=== PATIENT | female | born 1990 | race Two or more races ===

== ENCOUNTER 2025-02-24 19:36 | Emergency (ER) | payer MEDICAID, SELFPAY ==
[2025-02-24 19:38] VITALS: BMI 42.7
[2025-02-24 20:14] VITALS: BP 118/71; PULSE 107; RESP 18; TEMP 37.3; O2SAT 97
--- NOTE | 2025-02-24 20:18 | XR_ITS ---
Examination: PA lateral chest 2 views Technique: Upright PA lateral chest 2 views Exam date and time: May 26 2025.30 hours Indications: Fever chills beginning 9 days ago. Findings: Significant pneumonia anterior segment left upper lobe Normal heart size Intact osseous structures Impression: Significant pneumonia anterior segment left upper lobe
--- NOTE | 2025-02-24 20:30 | EDNOTE_ITS ---
Upper Respiratory Inf. RME/HPI General Chief Complaint: Flu Like Symptoms Stated Complaint: COUGHING, WHEEZING DX WITH STREP 02/22 Time Seen by Provider: 02/24/25 19:47 Arrival date/time: 02/24/25 19:36 35 year old female present to emergency room with c/o of cough and shortness of breath 3 days. patient was recently diagnosed with strep throat and place on oral antibiotics. LOCATION: posterior oral pharynx SEVERITY: Symptoms are described as being severe with limitations on activities of daily living QUALITY: Symptoms are described as being dull or achy CONTEXT: The patient is unable to identify any inciting events. DURATION/TIMING: The symptoms started approximately 2 day ago and have been constant this then. ASSOCIATED SYMPTOMS: The patient is unable to identify any other associated symptoms. MODIFYING FACTORS: worse with swallowing PERTINENT ROS: denies any food or liquids getting stuck, denies any generalized weakness, denies any trauma, no chest pain, no abdominal pain, no rashes, no joint swelling REVIEW OF SYSTEMS: See History of Present Illness - with the exception of those mentioned in the history of present illness, all other systems reviewed and reported as negative GENERAL: In general the patient is awake, interactive, in an emergency department gurney. HEAD/EYES/EARS/NOSE/THROAT: normo-cephalic, atraumatic, mucus membranes are moist, anicteric, palpebral conjunctiva is pink, trachea is midline. CARDIOVASCULAR: regular rate and regular rhythm, no murmurs, heart sounds are not distant, strong pulses in all four extremities that are equal and symmetric bilateral upper and lower extremities, normal capillary refill. CHEST/PULMONARY: normal chest rise and fall, good air movement, bilateral wheezes noted. normal inspiratory to expiratory ratios without evidence of respiratory distress. NECK: No midline/Paraspinal tenderness, no step off ROM/Strenght intact No Ker nig and bruzinski sign. No trauma ABDOMEN: soft, not tender, no masses appreciated BACK: normal range of motion without pain. NEUROLOGICAL: cranio-facial features are symmetric, moves all four extremities equally without obvious limitations or weakness. EXTREMITY: no tenderness to palpation over the long bones or large joints of the bilateral upper and lower extremities, no joint swelling, no joint erythema, no signs of trauma, no unilateral leg swelling and no peripheral edema. SKIN: warm, dry, well-perfused, no jaundice, no rash, no telangiectasias or petechia. PSYCH: calm, cooperative, no evidence of psychosis or agitation Related Data Previous Rx's ?Medication ?Instructions ?Recorded Hydrocodone/Acetaminophen * (NORCO 1 tab PO Q6H PRN AB DOMINAL PAIN 01/09/16 7.5/325 *) #40 tabs Cyclobenzaprine * (FLEXERIL *) 10 mg PO TID #30 tabs 1 cyclobenzaprine 5 mg tablet 5 mg PO TID PRN muscle spa sm #14 09/11/20 tabs albuterol sulfate 90 mcg/actuation 2 puff inhalation Q ID PRN 07/03/21 aerosol inhaler shortness of breath or wheez ing #18 grams cetirizine 10 mg tablet (Zyrtec) 10 mg PO QDAY PRN all ergy symptoms 07/03/21 #30 tabs sodium chloride 0.65 % nasal spray 2 spray intranasal QID #60 mL 07/03/21 aerosol (Saline Nasal) acetaminophen 500 mg tablet 500 mg PO QID #30 tabs (Tylenol Extra Strength) azithromycin 250 mg tablet See Rx Instructions PO .COM PLEX #6 12/04/21 tabs naproxen 500 mg tablet 500 mg PO BID PRN pain #30 t abs 02/14/24 albuterol sulfate 90 mcg/actuation 1 inh inhalation QI D PRN shortness 02/24/25 aerosol inhaler of breath or wheezing #6.7 g shantell azithromycin 500 mg tablet 500 mg PO QDAY 3 days #3 ta bs 02/24/25 methylprednisolone 4 mg tablets in 4 mg PO .as directe d #21 tabs 02/24/25 a dose pack (Medrol (Misael)) Allergies Allergy/AdvReac Type Severity Reaction Status Date / Time metformin Allergy Verified 02/24/25 19:41 Course Course Course Narrative: Patient presenting with cough and fever.? VS were reviewed and showed wnl .? ?Lung exam noted to have + wheezing? ?Obtained and reviewed CXR, which showed pna .? ?At this time, it is felt that the most likely explanation for the patient's symptoms is pneumonia.? I also considered URI, bronchitis, pneumonia, pneumothorax, PE, but this appears less likely considering the data gathered thus far.? Patient was provided azithromycin, predisone 50mg, duoneb? while in the ED.? ? Supportive treatment options were discussed.? Patient to follow up with PCP closely.?? Impression:?? Community acquired pneumonia Plan Prescribed inhaler, medro dose, azithromycin? Advised Pt on supportive measures, including smoking cessation and avoidance of second-hand smoke, OTC acetaminophen or ibuprofen for fever and body aches, advancement of fluids as tolerated, rest, and frequent hand-washing w/ soap and water. Instructed Pt to monitor for shaking chills or T>100.5degF, persistent cough >7- 10d, hemoptysis, delirium or confusion, cyanosis, and respiratory distress.? Instructed Pt to f/up w/ PCP or ETC should Sx worsen or not improve.? Quality Measures none Orders Category Date Time Status XR chest 2V Stat Exams 02/24/25 20:18 Completed Albuterol/Ipratr Rt Carlota [Duoneb Rt Carlota] Med 02/24/25 21:10 Discontinued 3 ml INH X1 ONE Azithromycin Po [Zithromax PO] Med 02/24/25 21:51 Discontinued 500 mg PO X1 ONE predniSONE Med 02/24/25 20:18 Discontinued 60 mg PO X1 ONE Reevaluation(s) Reevaluation #1: pt is feeling better Vital Signs Vital signs: Vital Signs Temperature 99.1 F 02/24/25 20:14 Pulse Rate 107 H 02/24/25 20:14 Respiratory Rate 18 02/24/25 20:14 Blood Pressure 118/71 02/24/25 20:14 Pulse Oximetry (%) 97 02/24/25 20:14 Oxygen Delivery Method Room Air 02/24/25 20:14 Upper Respiratory Infection Patient data External records reviewed:: [facility] previous records Clinical information provided by:: patient Social determinants that could affect healthcare access:: none Patient has the following chronic illnesses:: as stated in chart How is presenting disease/condition affected by chronic disease/condition?: exacerbated by Evaluation data The following diagnostics were reviewed and interpreted by me:: radiology exam(s) Lab and/or radiology exams considered but not ordered:: n/a Interpretation Summary: Impression: Significant pneumonia anterior segment left upper lobe Medications / Prescriptions Medications or Prescriptions considered but not ordered:: n/a Medication administrations:: Medication Administration History Discontinued Medications Albuterol/Ipratropium (Albuterol/Ipratropium (Duoneb) Rt Carlota 3 Ml Nebu) 3 ml INH X1 ONE Stop: 02/24/25 21:11 Last Admin: 02/24/25 21:35 Dose: 3 ml Documented By: SHAHNAZ Azithromycin (Azithromycin 250 Mg Tablet) 500 mg PO X1 ONE Stop: 02/24/25 21:52 Prednisone (Prednisone 20 Mg Tablet) 60 mg PO X1 ONE Stop: 02/24/25 20:19 Last Admin: 02/24/25 20:55 Dose: 60 mg Documented By: DWAYNE as stated above Consultations Consultation(s) initiated? (list below): No Diagnosis Upper Respiratory Differential Diagnosis: upper respiratory infection, viral infection, bronchitis, influenza and other (strep) Most likely diagnosis given after review of the tests above:: pna Admission Indicated Admission indicated?: not indicated Admission Request Was there a request for admission?: No Disposition Plan Disposition Plan: Discharge Discharge Attestation Discharge Attestation: The patient and all family members were given an opportunity to ask questions and understood the discharge instructions. Discharge instructions specifically effects, indications for sooner follow up or return to the emergency department, and the expected course of current diagnosis. Patient condition: Stable Discharge Plan Plan Patient Disposition: HOME (Self Care) Prescriptions/Referrals Prescriptions/Med Rec: New azithromycin 500 mg tablet 500 mg PO QDAY 3 Days Qty: 3 0RF methylprednisolone [Medrol (Misael)] 4 mg tablets,dose pack 4 mg PO .as directed Qty: 21 0RF albuterol sulfate 90 mcg/actuation HFA aerosol inhaler 1 inh inhalation QID PRN (Reason: shortness of breath or wheezing) Qty: 6.7 0RF No Action Hydrocodone/Acetaminophen * (NORCO 7.5/325 *) 1 TAB tablet 1 tab PO Q6H PRN (Reason: ABDOMINAL PAIN) Qty: 40 0RF Cyclobenzaprine * (FLEXERIL *) 10 MG tablet 10 mg PO TID Qty: 30 0RF cyclobenzaprine 5 mg tablet 5 mg PO TID PRN (Reason: muscle spasm) Qty: 14 0RF albuterol sulfate 90 mcg/actuation HFA aerosol inhaler 2 puff inhalation QID PRN (Reason: shortness of breath or wheezing) Qty: 18 0RF sodium chloride [Saline Nasal] 0.65 % aerosol,spray 2 spray intranasal QID Qty: 60 0RF cetirizine [Zyrtec] 10 mg tablet 10 mg PO QDAY PRN (Reason: allergy symptoms) Qty: 30 0RF azithromycin 250 mg tablet See Rx Instructions .ROUTE .COMPLEX Qty: 6 0RF Rx Instructions: For 250 mg dose pack: take 500 mg today (day 1), then 250 mg for 4 days (days 2-5) acetaminophen [Tylenol Extra Strength] 500 mg tablet 500 mg PO QID Qty: 30 0RF naproxen 500 mg tablet 500 mg PO BID PRN (Reason: pain) Qty: 30 0RF Referrals: [address] [facility] 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
[2025-02-24] MEDS: predniSONE 20 MG TABLET 60 MG PO (20:55)
[2025-02-24] MEDS: ALBUTEROL/IPRATROPIUM (Duoneb) RT SOL 3 ML NEBU INH (21:35)
[2025-02-24 21:37] VITALS: PULSE 122; RESP 16; O2SAT 99
[2025-02-24] MEDS: AZITHROMYCIN 250 MG TABLET 500 MG PO (22:05)
== END 2025-02-24 22:07 | disposition home or self-care (01) ==
PROVIDERS: Emergency Provider Emergency Medicine; PCP Nurse Practitioner Family
DX: J18.9 Pneumonia, unspecified organism (principal)
CPT/HCPCS: 71046; 94640; 99283; A9270; J7512

== ENCOUNTER 2025-02-26 01:38 | Emergency (ER) | payer MEDICAID, SELFPAY ==
[2025-02-26 01:41] VITALS: BMI 42.7
[2025-02-26 02:05] VITALS: BP 142/82; PULSE 77; RESP 18; TEMP 36.9; O2SAT 97
--- NOTE | 2025-02-26 02:09 | PD.EDADULT ---
ED General RME/HPI General Chief complaint: General Adult/Misc Complain Stated complaint: NOT FEELING GOOD Time Seen by Provider: 02/26/25 01:44 Arrival date/time: 02/26/25 01:38 35 year old female present to emergency room with c/o of not feeling good patient was recently diagnosed with strep and pneumonia. prescription of azithromycin and medro dose misael. patient throat is feeling better after being diagnose with strep from outside local clinic. patient report heart rate racing after taking medro dose misael SEVERITY: Symptoms are described as being severe with limitations on activities of daily living CONTEXT: The patient is unable to identify any inciting events. DURATION/TIMING: The symptoms started approximately 2 days ASSOCIATED SYMPTOMS: The patient is unable to identify any other associated symptoms. MODIFYING FACTORS: The patient is unable to identify any alleviating or aggravating symptoms. PERTINENT ROS: no fevers, no cough, no pleuritic pain, no ripping or tearing sensations, denies any lower extremity edema and no unilateral swelling, no chest pain/shortness of breath no nausea,vomiting, diarrhea, no dizziness/headache no rash no loc/syncope episode no abd/back pain no dsyuria,urgency,frequency REVIEW OF SYSTEMS: See History of Present Illness - with the exception of those mentioned in the history of present illness, all other systems reviewed and reported as negative GENERAL: In general the patient is awake, interactive, in an emergency department gurney. HEAD/EYES/EARS/NOSE/THROAT: normo-cephalic, atraumatic, mucus membranes are moist, anicteric, palpebral conjunctiva is pink, trachea is midline. CARDIOVASCULAR: regular rate and regular rhythm, no murmurs, heart sounds are not distant, strong pulses in all four extremities that are equal and symmetric bilateral upper and lower extremities, normal capillary refill. CHEST/PULMONARY: normal chest rise and fall, good air movement, clear to auscultation bilaterally, normal inspiratory to expiratory ratios without evidence of respiratory distress. NECK: No midline/Paraspinal tenderness, no step off ROM/Strenght intact No Kernig and bruzinski sign. No trauma ABDOMEN: soft, not tender, no masses appreciated BACK: normal range of motion without pain. NEUROLOGICAL: cranio-facial features are symmetric, moves all four extremities equally without obvious limitations or weakness. EXTREMITY: no tenderness to palpation over the long bones or large joints of the bilateral upper and lower extremities, no joint swelling, no joint erythema, no signs of trauma, no unilateral leg swelling and no peripheral edema. SKIN: warm, dry, well-perfused, no jaundice, no rash, no telangiectasias or petechia. PSYCH: calm, cooperative, no evidence of psychosis or agitation Related Data Previous Rx's ?Medication ?Instructions ?Recorded Hydrocodone/Acetaminophen * (NORCO 1 tab PO Q6H PRN ABDOMINAL PAIN 01/09/16 7.5/325 *) #40 tabs Cyclobenzaprine * (FLEXERIL *) 10 mg PO TID #30 tabs 08/27/16 cyclobenzaprine 5 mg tablet 5 mg PO TID PRN muscle spasm #14 09/11/20 tabs albuterol sulfate 90 mcg/actuation 2 puff inhalation QID PRN 07/03/21 aerosol inhaler shortness of breath or wheezing #18 grams cetirizine 10 mg tablet (Zyrtec) 10 mg PO QDAY PRN allergy symptoms 07/03/21 #30 tabs sodium chloride 0.65 % nasal spray 2 spray intranasal QID #60 mL 07/03/21 aerosol (Saline Nasal) acetaminophen 500 mg tablet 500 mg PO QID #30 tabs 12/04/21 (Tylenol Extra Strength) azithromycin 250 mg tablet See Rx Instructions PO .COMPLEX #6 12/04/21 tabs naproxen 500 mg tablet 500 mg PO BID PRN pain #30 tabs 02/14/24 albuterol sulfate 90 mcg/actuation 1 inh inhalation QID PRN shortness 02/24/25 aerosol inhaler of breath or wheezing #6.7 grams azithromycin 500 mg tablet 500 mg PO QDAY 3 days #3 tabs 02/24/25 methylprednisolone 4 mg tablets in 4 mg PO .as directed #21 tabs 02/24/25 a dose pack (Medrol (Misael)) Allergies Allergy/AdvReac Type Severity Reaction Status Date / Time metformin Allergy Verified 02/26/25 01:43 Course Course Course Narrative: advised patient to discontinue promethazine and dm, check suger since medro dose misael may temp cause elevated blood glucose. finish azithromycin and if sx worsen to stop, return to ED for evaluation. Pt denies any sob, chest pain, syncope, dizziness , nausea/vomiting or leg pain. vital sign at ER is wnl. Quality Measures none Vital Signs Vital signs: Vital Signs Temperature 98.5 F 02/26/25 02:05 Pulse Rate 77 02/26/25 02:05 Respiratory Rate 18 02/26/25 02:05 Blood Pressure 142/82 H 02/26/25 02:05 Pulse Oximetry (%) 97 02/26/25 02:05 Oxygen Delivery Method Room Air 02/26/25 02:05 Discharge Plan Plan Patient Disposition: HOME (Self Care) Prescriptions/Referrals Prescriptions/Med Rec: No Action Hydrocodone/Acetaminophen * (NORCO 7.5/325 *) 1 TAB tablet 1 tab PO Q6H PRN (Reason: ABDOMINAL PAIN) Qty: 40 0RF Cyclobenzaprine * (FLEXERIL *) 10 MG tablet 10 mg PO TID Qty: 30 0RF cyclobenzaprine 5 mg tablet 5 mg PO TID PRN (Reason: muscle spasm) Qty: 14 0RF albuterol sulfate 90 mcg/actuation HFA aerosol inhaler 2 puff inhalation QID PRN (Reason: shortness of breath or wheezing) Qty: 18 0RF sodium chloride [Saline Nasal] 0.65 % aerosol,spray 2 spray intranasal QID Qty: 60 0RF cetirizine [Zyrtec] 10 mg tablet 10 mg PO QDAY PRN (Reason: allergy symptoms) Qty: 30 0RF azithromycin 250 mg tablet See Rx Instructions .ROUTE .COMPLEX Qty: 6 0RF Rx Instructions: For 250 mg dose pack: take 500 mg today (day 1), then 250 mg for 4 days (days 2-5) acetaminophen [Tylenol Extra Strength] 500 mg tablet 500 mg PO QID Qty: 30 0RF naproxen 500 mg tablet 500 mg PO BID PRN (Reason: pain) Qty: 30 0RF azithromycin 500 mg tablet 500 mg PO QDAY 3 Days Qty: 3 0RF methylprednisolone [Medrol (Misael)] 4 mg tablets,dose pack 4 mg PO .as directed Qty: 21 0RF albuterol sulfate 90 mcg/actuation HFA aerosol inhaler 1 inh inhalation QID PRN (Reason: shortness of breath or wheezing) Qty: 6.7 0RF Referrals: [address] [facility] 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
--- NOTE | 2025-02-26 02:16 | EDNOTE_ITS ---
ED General RME/HPI General Chief complaint: General Adult/Misc Complain Stated complaint: NOT FEELING GOOD Time Seen by Provider: 02/26/25 01:44 Arrival date/time: 02/26/25 01:38 ED General RME/HPI General Chief complaint: General Adult/Misc Complain Stated complaint: NOT FEELING GOOD Time Seen by Provider: 02/26/25 01:44 Arrival date/time: 02/26/25 01:38 35 year old female present to emergency room with c/o of not feeling good patient was recently diagnosed with strep and pneumonia. prescription of azithromycin and medro dose misael. patient throat is feeling better after being diagnose with strep from outside local clinic. patient report heart rate racing after taking medro dose misael SEVERITY: Symptoms are described as being severe with limitations on activities of daily living CONTEXT: The patient is unable to identify any inciting events. DURATION/TIMING: The symptoms started approximately 2 days ASSOCIATED SYMPTOMS: The patient is unable to identify any other associated symptoms. MODIFYING FACTORS: The patient is unable to identify any alleviating or aggravating symptoms. PERTINENT ROS: no fevers, no cough, no pleuritic pain, no ripping or tearing sensations, denies any lower extremity edema and no unilateral swelling, no chest pain/shortness of breath no nausea,vomiting, diarrhea, no dizziness/headache no rash no loc/syncope episode no abd/back pain no dsyuria,urgency,frequency REVIEW OF SYSTEMS: See History of Present Illness - with the exception of those mentioned in the history of present illness, all other systems reviewed and reported as negative GENERAL: In general the patient is awake, interactive, in an emergency department gurney. HEAD/EYES/EARS/NOSE/THROAT: normo-cephalic, atraumatic, mucus membranes are moist, anicteric, palpebral conjunctiva is pink, trachea is midline. CARDIOVASCULAR: regular rate and regular rhythm, no murmurs, heart sounds are not distant, strong pulses in all four extremities that are equal and symmetric bilateral upper and lower extremities, normal capillary refill. CHEST/PULMONARY: normal chest rise and fall, good air movement, clear to auscultation bilaterally, normal inspiratory to expiratory ratios without evidence of respiratory distress. NECK: No midline/Paraspinal tenderness, no step off ROM/Strenght intact No Kernig and bruzinski sign. No trauma ABDOMEN: soft, not tender, no masses appreciated BACK: normal range of motion without pain. NEUROLOGICAL: cranio-facial features are symmetric, moves all four extremities equally without obvious limitations or weakness. EXTREMITY: no tenderness to palpation over the long bones or large joints of the bilateral upper and lower extremities, no joint swelling, no joint erythema, no signs of trauma, no unilateral leg swelling and no peripheral edema. SKIN: warm, dry, well-perfused, no jaundice, no rash, no telangiectasias or isaac lu. PSYCH: calm, cooperative, no evidence of psychosis or agitation Related Data Previous Rx's ?Medication ?Instructions ?Recorded Hydrocodone/Acetaminophen * (NORCO 1 tab PO Q6H PRN AB DOMINAL PAIN 01/09/16 7.5/325 *) #40 tabs Cyclobenzaprine * (FLEXERIL *) 10 mg PO TID #30 tabs 1 cyclobenzaprine 5 mg tablet 5 mg PO TID PRN muscle spa sm #14 09/11/20 tabs albuterol sulfate 90 mcg/actuation 2 puff inhalation Q ID PRN 07/03/21 aerosol inhaler shortness of breath or wheez ing #18 grams cetirizine 10 mg tablet (Zyrtec) 10 mg PO QDAY PRN all ergy symptoms 07/03/21 #30 tabs sodium chloride 0.65 % nasal spray 2 spray intranasal QID #60 mL 07/03/21 aerosol (Saline Nasal) acetaminophen 500 mg tablet 500 mg PO QID #30 tabs (Tylenol Extra Strength) azithromycin 250 mg tablet See Rx Instructions PO .COM PLEX #6 12/04/21 tabs naproxen 500 mg tablet 500 mg PO BID PRN pain #30 t abs 02/14/24 albuterol sulfate 90 mcg/actuation 1 inh inhalation QI D PRN shortness 02/24/25 aerosol inhaler of breath or wheezing #6.7 g shantell azithromycin 500 mg tablet 500 mg PO QDAY 3 days #3 ta bs 02/24/25 methylprednisolone 4 mg tablets in 4 mg PO .as directe d #21 tabs 02/24/25 a dose pack (Medrol (Misael)) Allergies Allergy/AdvReac Type Severity Reaction Status Date / Time metformin Allergy Verified 02/26/25 01:43 Course Course Course Narrative: advised patient to discontinue promethazine and dm, check suger since medro dose misael may temp cause elevated blood glucose. finish azithromycin and if sx worsen to stop, return to ED for evaluation. Pt denies any sob, chest pain, syncope, dizziness , nausea/vomiting or leg pain. vital sign at ER is wnl. Quality Measures none Vital Signs Vital signs: Vital Signs Temperature 98.5 F 02/26/25 02:05 Pulse Rate 77 02/26/25 02:05 Respiratory Rate 18 02/26/25 02:05 Blood Pressure 142/82 H 02/26/25 02:05 Pulse Oximetry (%) 97 02/26/25 02:05 Oxygen Delivery Method Room Air 02/26/25 02:05 Discharge Plan Plan Patient Disposition: HOME (Self Care) Prescriptions/Referrals Prescriptions/Med Rec: No Action Hydrocodone/Acetaminophen * (NORCO 7.5/325 *) 1 TAB tablet 1 tab PO Q6H PRN (Reason: ABDOMINAL PAIN) Qty: 40 0RF Cyclobenzaprine * (FLEXERIL *) 10 MG tablet 10 mg PO TID Qty: 30 0RF cyclobenzaprine 5 mg tablet 5 mg PO TID PRN (Reason: muscle spasm) Qty: 14 0RF albuterol sulfate 90 mcg/actuation HFA aerosol inhaler 2 puff inhalation QID PRN (Reason: shortness of breath or wheezing) Qty: 18 0RF sodium chloride [Saline Nasal] 0.65 % aerosol,spray 2 spray intranasal QID Qty: 60 0RF cetirizine [Zyrtec] 10 mg tablet 10 mg PO QDAY PRN (Reason: allergy symptoms) Qty: 30 0RF azithromycin 250 mg tablet See Rx Instructions .ROUTE .COMPLEX Qty: 6 0RF Rx Instructions: For 250 mg dose pack: take 500 mg today (day 1), then 250 mg for 4 days (days 2-5) acetaminophen [Tylenol Extra Strength] 500 mg tablet 500 mg PO QID Qty: 30 0RF naproxen 500 mg tablet 500 mg PO BID PRN (Reason: pain) Qty: 30 0RF azithromycin 500 mg tablet 500 mg PO QDAY 3 Days Qty: 3 0RF methylprednisolone [Medrol (Misael)] 4 mg tablets,dose pack 4 mg PO .as directed Qty: 21 0RF albuterol sulfate 90 mcg/actuation HFA aerosol inhaler 1 inh inhalation QID PRN (Reason: shortness of breath or wheezing) Qty: 6.7 0RF Referrals: [facility] [facility] 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
== END 2025-02-26 02:21 | disposition home or self-care (01) ==
PROVIDERS: Emergency Provider Emergency Medicine; PCP Nurse Practitioner Family
DX: J18.9 Pneumonia, unspecified organism (principal); R00.0 Tachycardia, unspecified; T38.0X5A Adverse effect of glucocorticoids and synthetic analogues, initial encounter
CPT/HCPCS: 99281